=== PATIENT | female | born 1995 | race Two or more races ===

== ENCOUNTER → 2019-04-05 | Outpatient (CLI) | payer OTHER | END | disposition home or self-care (01) | LOC: PRENATAL 08:00 | DX: O26.892 Other specified pregnancy related conditions, second trimester (principal) ==

== ENCOUNTER 2019-09-02 13:23 | Inpatient (IN) | payer OTHER ==
[~2019-09-02] VITALS: Ht 162.6 cm; Wt 3.2 kg
[2019-09-02] MEDS ORDERED: PRENATAL TABLE1 EAC1 PO (14:22)
== END 2019-09-05 10:32 | DRG 788 ==
LOC: LDR 13:23 → OB/GYN 13:23
PROVIDERS: ADMIT Obstetrics & Gynecology
PROC: 4A1HXCZ Monitoring of Products of Conception, Cardiac Rate, External Approach (ICD-10-PCS; 2019-09-02)
PROC: 4A033R1 Measurement of Arterial Saturation, Peripheral, Percutaneous Approach (ICD-10-PCS; 2019-09-02)
PROC: 10D00Z1 Extraction of Products of Conception, Low, Open Approach (ICD-10-PCS; principal; 2019-09-02 20:00)
DX: O62.0 Primary inadequate contractions (principal); Z3A.39 39 weeks gestation of pregnancy; Z37.0 Single live birth; Z22.330 Carrier of Group B streptococcus

== ENCOUNTER 2024-04-07 18:34 | Emergency (ER) | payer OTHER ==
[~2024-04-07] VITALS: Ht 162.6 cm; Wt 78.9 kg
[~2024-04-07 18:34] MED LIST: PRENATAL TABLE1 EAC1 PO
[2024-04-07] MEDS ORDERED: CEFTRIAXONE SODIUM 1,000 MG VIAL IM STA (21:21)
[2024-04-07] MEDS ORDERED: CEFTRIAXONE SODIUM 1,000 MG VIAL ONE (21:26)
== END 2024-04-07 21:34 | disposition home or self-care (01) ==
LOC: ER 18:35
DX: J03.80 Acute tonsillitis due to other specified organisms (principal)

== ENCOUNTER 2024-05-02 10:11 | Outpatient (CLI) | payer OTHER | END 2024-05-02 10:12 | disposition home or self-care (01) | LOC: PRENATAL 10:11 | PROVIDERS: ATTEND Obstetrics & Gynecology Maternal & Fetal Medicine | DX: O26.843 Uterine size-date discrepancy, third trimester (principal); O44.02 Complete placenta previa NOS or without hemorrhage, second trimester; O34.219 Maternal care for unspecified type scar from previous cesarean delivery; O43.212 Placenta accreta, second trimester; Z3A.26 26 weeks gestation of pregnancy ==

== ENCOUNTER 2024-06-15 09:32 | Outpatient (CLI) | payer OTHER | END 2024-06-15 09:33 | disposition home or self-care (01) | LOC: PRENATAL 09:32 | PROVIDERS: ATTEND Obstetrics & Gynecology Maternal & Fetal Medicine | DX: O26.849 Uterine size-date discrepancy, unspecified trimester (principal); O36.8199 Decreased fetal movements, unspecified trimester, other fetus; O34.219 Maternal care for unspecified type scar from previous cesarean delivery; O32.9XX0 Maternal care for malpresentation of fetus, unspecified, not applicable or unspecified; Z3A.32 32 weeks gestation of pregnancy ==

== ENCOUNTER → 2024-07-11 14:31 | Outpatient (CLI) | payer OTHER | END | disposition home or self-care (01) | LOC: PRENATAL 14:31 | PROVIDERS: ATTEND Obstetrics & Gynecology Maternal & Fetal Medicine | DX: O26.849 Uterine size-date discrepancy, unspecified trimester (principal); O36.8199 Decreased fetal movements, unspecified trimester, other fetus; O34.219 Maternal care for unspecified type scar from previous cesarean delivery; O32.9XX0 Maternal care for malpresentation of fetus, unspecified, not applicable or unspecified; Z3A.36 36 weeks gestation of pregnancy ==

== ENCOUNTER 2024-07-30 21:15 | Inpatient (IN) | payer OTHER ==
[~2024-07-30] VITALS: Ht 162.6 cm; Wt 92.5 kg
[2024-07-30 20:21] VITALS: BP 123/84; BP 128/84
[2024-07-30] MEDS ORDERED: AMPICILLIN SODIUM 2,000 MG VIAL IV ONE (21:30)
[2024-07-30] MEDS ORDERED: RINGERS SOLUTION,LACTATED 1,000 ML IV SCH (21:30)
[2024-07-30 21:48] LABS: HEMOGLOBIN 11.2 g/dL (12.0-15.00); MEAN CELL VOLUME 82.7 fL (80.00-100.00); MEAN CORPUSCULAR HEMOGLOBIN 28.1 pg (27.00-32.0); PH,URINE 6.5 (5.0-8.0); PLATELET COUNT 205 K/uL (150-450); RED CELL DISTRIBUTION WIDTH 16.3 % (11.5-14.5); URINE APPEARANCE Cloudy; URINE BILIRRUBIN Negative (NEGATIVE); URINE BLOOD Negative; URINE COLOR Yellow; URINE GLUCOSE Negative (NEGATIVE); URINE KETONE Trace (NEGATIVE); URINE LEUKOCYTE Small; URINE NITRATE Negative; URINE PROTEIN Trace (NEGATIVE)
[2024-07-30 21:52] LABS: URINE CAST 1.98 uL (0.0-1.40); URINE EPITHELIAL CELLS 65.5 uL (0.0-38.8); URINE RBC 13.5 uL (0.0-20.8); URINE WBC 217.5 uL (0.0-23.2)
[2024-07-30 21:59] LABS: URINE BACTERIA > 9821.5 uL (0.0-1933)
[2024-07-30 22:04] LABS: INR 0.96; PROTHROMBIN TIME 10.5 SECONDS (9.0-11.5)
[2024-07-30 22:10] LABS: ALBUMIN 2.5 gm/dL (3.4-5.0); BILIRUBIN TOTAL 0.31 mg/dL (0.3-1.2); CALCIUM 8.7 mg/dL (8.5-10.1); CREATININE SERUM 0.53 mg/dL (0.55-1.02); GFR 136.38; GLOBULINA 3.5 G/DL (2.4-3.5); POTASSIUM 3.82 mEq/L (3.5-5.1)
[2024-07-30 23:29] VITALS: BP 112/70
[2024-07-31] MEDS ORDERED: AMPICILLIN SODIUM 1,000 MG VIAL IV SCH (01:00)
[2024-07-31 04:04] VITALS: BP 96/58
[2024-07-31 07:01] VITALS: BP 111/70
[2024-07-31 13:22] VITALS: BP 104/67; O2SAT 99
[2024-07-31 15:54] VITALS: BP 109/68
[2024-07-31 19:03] VITALS: BP 127/87
[2024-08-01] VITALS: BP 113/73
[2024-08-01 07:19] VITALS: BP 110/71
[2024-08-01] MEDS ORDERED: PROMETHAZINE HCL 25 MG/ML AMPUL IM SCH (13:25)
[2024-08-01] MEDS ORDERED: RINGERS SOLUTION,LACTATED 1,000 ML IV SCH (13:30)
[2024-08-01] MEDS ORDERED: MORPHINE SULFATE 4 MG/ML CARTRIDGE IV PRN (13:30)
[2024-08-01] MEDS ORDERED: CHLORHEXIDINE GLUCONATE 120 ML BOTTLE TOP ONE (14:00)
[2024-08-01] MEDS ORDERED: OXYTOCIN 10 UNITS/ML VIAL IV ONE (14:00)
[2024-08-01] MEDS ORDERED: ERYTHROMYCIN BASE OPHT 1GM EACH TUBE OP ONE (14:00)
[2024-08-01] MEDS ORDERED: MORPHINE SULFATE 4 MG/ML VIAL IV ONE ×2 (15:00→15:30)
[2024-08-01] MEDS ORDERED: LIDOCAINE HCL 1% 10ML VIAL IJ ONE (15:30)
[2024-08-01 18:11] VITALS: BP 101/60
[2024-08-01 20:00] VITALS: BP 115/65
[2024-08-02] VITALS: BP 124/75
[2024-08-02 08:00] VITALS: BP 117/64
[2024-08-02] MEDS ORDERED: OxyCODONE HCL/APAP UD (PERCOCET) PO PRN (08:15)
[2024-08-02 16:00] VITALS: BP 105/65
[2024-08-03] VITALS: BP 112/72
[2024-08-03 08:00] VITALS: BP 116/71
[2024-08-03 16:00] VITALS: BP 103/63
[2024-08-04 01:40] VITALS: BP 108/71
[2024-08-04 08:47] VITALS: BP 100/63
[2024-08-04] MEDS ORDERED: OxyCODONE HCL/APAP UD (PERCOCET) PO PRN (10:15)
== END 2024-08-04 17:37 | disposition home or self-care (01) | DRG 785 ==
LOC: LDR 21:15 → OB/GYN 21:15 → O/R 08-01 13:23 → OB/GYN 08-01 15:36
PROVIDERS: ADMIT Obstetrics & Gynecology Obstetrics; ATTEND Obstetrics & Gynecology Obstetrics
PROC: 4A1HXCZ Monitoring of Products of Conception, Cardiac Rate, External Approach (ICD-10-PCS; 2024-07-30)
PROC: 0UB70ZZ Excision of Bilateral Fallopian Tubes, Open Approach (ICD-10-PCS; 2024-08-01)
PROC: 10D00Z1 Extraction of Products of Conception, Low, Open Approach (ICD-10-PCS; principal; 2024-08-01 12:00)
DX: O34.211 Maternal care for low transverse scar from previous cesarean delivery (principal); Z30.2 Encounter for sterilization; Z20.822 Contact with and (suspected) exposure to COVID-19; Z37.0 Single live birth; Z3A.39 39 weeks gestation of pregnancy